=== PATIENT | female | born 1960 | race Caucasian/White ===

== ENCOUNTER 2021-09-16 04:26 | Inpatient (IN) | payer OTHER ==
[2021-09-12 12:48] VITALS: BMI 27.4
[2021-09-16] MEDS ORDERED: BUPIVACAINE LIPOSOME/PF (EXPAREL) 266 MG/20 ML VIAL ONE (08:39)
[2021-09-16] MEDS ORDERED: BUPIVACAINE HCL/PF 0.5% (5MG/ML) 10 ML VIAL ONE (08:39)
[2021-09-16] MEDS ORDERED: MIDAZOLAM HCL 2 MG/2 ML SINGLE DOSE VIAL ONE ×3 (08:40→08:50)
[2021-09-16] MEDS ORDERED: ROCURONIUM BROMIDE 50 MG/5 ML SYRINGE ONE (08:50)
[2021-09-16] MEDS ORDERED: PROPOFOL 20 ML ONE (08:50)
[2021-09-16] MEDS ORDERED: ceFAZolin SODIUM 1 GM VIAL IVPB ONE (09:20)
[2021-09-16] MEDS ORDERED: NEOSTIGMINE METHYLSULFATE 0.5 MG/ML - 10 ML MDV ONE (10:40)
[2021-09-16] MEDS ORDERED: oxyCODONE HCL 5 MG TABLET PO PRN ×3 (10:54→11:17)
[2021-09-16] MEDS ORDERED: ONDANSETRON 4 MG/2 ML VIAL IVPUSH PRN (10:54)
[2021-09-16] MEDS ORDERED: IBUPROFEN 600 MG TABLET (FP) PO PRN (10:54)
[2021-09-16] MEDS ORDERED: IBUPROFEN 800 MG/8 ML IJ IVPB PRN (10:54)
[2021-09-16] MEDS ORDERED: ACETAMINOPHEN 325 MG TABLET (FP) PO PRN (10:55)
[2021-09-16] MEDS ORDERED: BISACODYL 10 MG SUPP.RECT PR PRN (10:57)
[2021-09-16] MEDS ORDERED: ELECTROLYTE-148 SOLN 1,000 ML IV SCH (11:00)
[2021-09-16] MEDS ORDERED: LACTATED RINGERS SOLUTION 1,000 ML IV SCH (11:15)
[2021-09-16] MEDS ORDERED: DOCUSATE SODIUM 100 MG CAPSULE (FP) PO PRN (11:17)
[2021-09-16] MEDS ORDERED: HYDROmorphone HCL CARPU-JECT 2 MG/1 ML DISP.SYRIN IVPB PRN (11:17)
[2021-09-16] MEDS: ACETAMINOPHEN 1000 MG/100 ML VIAL IVPB SCH ×2 (11:55→17:21)
[2021-09-16] MEDS ORDERED: HYDROmorphone HCl 2 MG/ML VIAL ONE (13:44)
[2021-09-16] MEDS: oxyCODONE HCL 10 MG SUSTAINED ACTING TABLET PO SCH (21:14)
[2021-09-17] MEDS: ACETAMINOPHEN 1000 MG/100 ML VIAL IVPB SCH ×2 (00:28→06:32)
[2021-09-17 08:10] LABS: HEMATOCRIT 37.6 % (32.4-45.2); HEMOGLOBIN 12.9 GM/dL (10.7-15.3); MCH 29.3 pg (25.7-33.7); MCHC 34.3 g/dl (32.0-36.0); MEAN CELL VOLUME 85.4 fl (80-96); MEAN PLT VOLUME 9.5 fl (7.5-11.1); PLATELET COUNT 216 10^3/uL (134-434); RBC 4.41 M/mm3 (3.60-5.2); RDW 13.7 % (11.6-15.6); WHITE BLOOD COUNT 10.7 K/mm3 (4.0-10.0)
[2021-09-17 08:20] LABS: CALCIUM 8.6 mg/dL (8.5-10.1)
[2021-09-17 08:21] LABS: BLOOD UREA NITROGEN 7.8 mg/dL (7-18)
[2021-09-17 08:24] LABS: CREATININE 0.8 mg/dL (0.55-1.3)
[2021-09-17] MEDS: oxyCODONE HCL 10 MG SUSTAINED ACTING TABLET PO SCH ×2 (09:42→21:26)
[2021-09-17] MEDS: ENOXAPARIN NA (PORCINE) 40 MG/0.4 ML DISP.SYRIN SQ SCH (09:43)
[2021-09-17] MEDS: SIMETHICONE 80 MG TAB.CHEW (FP) PO PRN (15:39)
[2021-09-17 21:14] VITALS: TEMP 98.7
[2021-09-18] MEDS: ENOXAPARIN NA (PORCINE) 40 MG/0.4 ML DISP.SYRIN SQ SCH (09:11)
[2021-09-18] MEDS: SIMETHICONE 80 MG TAB.CHEW (FP) PO PRN (09:12)
[2021-09-18] MEDS: oxyCODONE HCL 10 MG SUSTAINED ACTING TABLET PO SCH (09:12)
[2021-09-18 11:01] VITALS: BP 122/70; PULSE 97
== END 2021-09-18 10:57 | disposition home or self-care (01) | DRG 743 ==
LOC: J2C 04:26 → J3W 13:20
PROVIDERS: ADMIT Obstetrics & Gynecology; ATTEND Obstetrics & Gynecology
PROC: 0UT70ZZ Resection of Bilateral Fallopian Tubes, Open Approach (ICD-10-PCS; 2021-09-16)
PROC: 0UT20ZZ Resection of Bilateral Ovaries, Open Approach (ICD-10-PCS; 2021-09-16)
PROC: 0UT90ZL Resection of Uterus, Supracervical, Open Approach (ICD-10-PCS; principal; 2021-09-16 09:00)
DX: D25.9 Leiomyoma of uterus, unspecified (principal)
CPT/HCPCS: 36415; 80048; 85027; 86850; 86900; 86901; 94010; 94760; J0131

== ENCOUNTER → 2022-05-21 | Day surgery (SDC) | payer OTHER | END | disposition home or self-care (01) | LOC: JRADIR 10:09 | PROVIDERS: ATTEND Internal Medicine Endocrinology, Diabetes & Metabolism | PROC: 0G9G3ZX Drainage of Left Thyroid Gland Lobe, Percutaneous Approach, Diagnostic (ICD-10-PCS; principal; 2022-05-21) | DX: E04.1 Nontoxic single thyroid nodule (principal) | CPT/HCPCS: 10005; 76942; 88173; 88305-TC ==

== ENCOUNTER 2023-10-13 04:03 | Day surgery (SDC) | payer OTHER ==
[2023-10-07 15:27] VITALS: BMI 27.6
[2023-10-13 10:21] VITALS: TEMP 97.7
[2023-10-13 10:49] VITALS: BP 130/76; PULSE 59; RESP 17
== END 2023-10-13 11:00 | disposition home or self-care (01) ==
LOC: JASU-ENDO 04:03
PROVIDERS: ATTEND Internal Medicine Gastroenterology
PROC: 0DB98ZX Excision of Duodenum, Via Natural or Artificial Opening Endoscopic, Diagnostic (ICD-10-PCS; 2023-10-13)
PROC: 0DB68ZX Excision of Stomach, Via Natural or Artificial Opening Endoscopic, Diagnostic (ICD-10-PCS; 2023-10-13)
PROC: 0DJD8ZZ Inspection of Lower Intestinal Tract, Via Natural or Artificial Opening Endoscopic (ICD-10-PCS; principal; 2023-10-13 10:00)
DX: Z51.11 Encounter for antineoplastic chemotherapy (principal); K29.50 Unspecified chronic gastritis without bleeding; K29.80 Duodenitis without bleeding
CPT/HCPCS: 43239; G0121